=== PATIENT | male | born 1970 | race Caucasian/White ===

== ENCOUNTER 2018-10-30 20:19 | Emergency (ER) | payer BC ==
[~2018-10-30 20:19] MED LIST: ZOFRAN ODT4 MG PO; ZOFRAN4 M2 PO
[2018-10-30 21:02] LABS: HEMATOCRIT 44.3 % (42.0-52.0); HEMOGLOBIN 15.7 g/dL (13.5-18.0); MEAN CELL VOLUME 78 fl (78-100); MEAN CORPUSCULAR HEMOGLOBIN 28 pg (27-31); MEAN CORPUSCULAR HGB CONC 35 g/dL (33-37); PLATELET COUNT 276 K/mm3 (130-400); RED BLOOD COUNT 5.66 M/mm3 (4.20-5.60); RED CELL DISTRIBUTION WIDTH 13.3 % (11.5-14.5); WHITE BLOOD COUNT 7.9 K/mm3 (4.8-10.8)
[2018-10-30 21:20] LABS: TOTAL BILIRUBIN 0.8 mg/dL (0.2-1.3); TOTAL PROTEIN 7.2 g/dL (6.3-8.2)
[2018-10-30 22:00] LABS: LYMPHOCYTE 28 % (20-51); MONOCYTE 12 % (3-10); NEUTROPHILS 56 % (42-75)
[2018-10-30 22:33] LABS: URINE APPEARANCE CLOUDY; URINE COLOR DK YELLOW; URINE GLUCOSE NEGATIVE (NEGATIVE); URINE KETONE 2+ (NEGATIVE); URINE PROTEIN(semi-quant) 1+ mg/dL (NEGATIVE)
[2018-10-30 22:34] LABS: URINE BILIRUBIN NEGATIVE (NEGATIVE); URINE BLOOD NEGATIVE (NEGATIVE); URINE LEUKOCYTE ESTERASE NEGATIVE (NEGATIVE); URINE NITRATE NEGATIVE (NEGATIVE); URINE UROBILINOGEN NORMAL (NORMAL)
[2018-10-30 22:35] LABS: URINE MUCUS PRESENT (NOT PRESENT)
[2018-10-31 00:16] VITALS: BP 138/86
== END 2018-10-31 00:16 | disposition home or self-care (01) ==
LOC: ED 20:19
PROVIDERS: Nurse Practitioner
DX: R11.2 Nausea with vomiting, unspecified (principal); R19.7 Diarrhea, unspecified; R10.9 Unspecified abdominal pain; Z90.49 Acquired absence of other specified parts of digestive tract; Z88.5 Allergy status to narcotic agent; Z98.890 Other specified postprocedural states
CPT/HCPCS: J2405; J3010; J7030; Q9967

== ENCOUNTER 2021-06-15 07:00 | Emergency (ER) | payer BC ==
[~2021-06-15] VITALS: Ht 180.3 cm; Wt 86.4 kg
[2021-06-15 08:08] LABS: HEMATOCRIT 44.2 % (42.0-52.0); HEMOGLOBIN 15.3 g/dL (13.5-18.0); MEAN CELL VOLUME 84 fl (78-100); MEAN CORPUSCULAR HEMOGLOBIN 29 pg (27-31); MEAN CORPUSCULAR HGB CONC 35 g/dL (33-37); MEAN PLATELET VOLUME 9.8 fl (7.4-10.4); PLATELET COUNT 274 K/mm3 (130-400); RED BLOOD COUNT 5.27 M/mm3 (4.20-5.60); RED CELL DISTRIBUTION WIDTH 12.8 % (11.5-14.5)
[2021-06-15 08:09] LABS: ALBUMIN 4.1 g/dL (3.5-5.0); POTASSIUM 3.3 mmol/L (3.5-5.1); SODIUM 141 mmol/L (136-145)
[2021-06-15 08:10] LABS: CALCIUM 9.9 mg/dL (8.3-10.5)
[2021-06-15 08:11] LABS: GLUCOSE 127 mg/dL (75-110); TOTAL PROTEIN 7.3 g/dL (6.4-8.3)
[2021-06-15 08:12] LABS: CARBON DIOXIDE 23 mmol/L (22-29)
[2021-06-15 08:13] LABS: TOTAL BILIRUBIN 0.9 mg/dL (0.2-1.2)
[2021-06-15 08:17] LABS: AST-SGOT 22 U/L (5-34)
[2021-06-15 08:18] LABS: ALT/SGPT 15 U/L (0-55); LIPASE 38 U/L (8-78)
[2021-06-15 09:02] LABS: PH-URINE 7.5 (5.0 - 8.0); URINE APPEARANCE HAZY; URINE BILIRUBIN NEGATIVE (NEGATIVE); URINE COLOR YELLOW; URINE GLUCOSE NEGATIVE (NEGATIVE); URINE KETONE NEGATIVE (NEGATIVE); URINE NITRATE NEGATIVE (NEGATIVE); URINE PROTEIN(semi-quant) TRACE mg/dL (NEGATIVE); URINE UROBILINOGEN NORMAL (NORMAL)
[2021-06-15 09:02] LABS: LYMPHOCYTE 55 % (20-51); MONOCYTE 8 % (3-10); NEUTROPHILS 33 % (42-75)
[2021-06-15 09:03] LABS: URINE BLOOD 50 ery/uL (NEGATIVE); URINE LEUKOCYTE ESTERASE TRACE (NEGATIVE)
[2021-06-15] MEDS ORDERED: NORCO 325 MG-51 TA1 PO (10:16)
[2021-06-15] MEDS ORDERED: ZOFRAN ODT4 MG PO (10:18)
[2021-06-15 10:37] VITALS: BP 153/98
== END 2021-06-15 10:38 | disposition home or self-care (01) ==
LOC: ED 07:00
PROVIDERS: Nurse Practitioner
DX: N20.1 Calculus of ureter (principal); Z90.49 Acquired absence of other specified parts of digestive tract
CPT/HCPCS: J1885; J2405; J2550; J2765; J3010; J7030

== ENCOUNTER → 2022-11-15 | Outpatient (CLI) | payer OTHER, BC ==
[~2022-11-15] MED LIST changes: +NORCO 325 MG-51 TA1 PO
== END ==
LOC: RAD 14:55
DX: S86.911D Strain of unspecified muscle(s) and tendon(s) at lower leg level, right leg, subsequent encounter (principal); R22.9 Localized swelling, mass and lump, unspecified; X58.XXXD Exposure to other specified factors, subsequent encounter